=== PATIENT | male | born 1995 ===

== ENCOUNTER 2020-12-03 02:55 | Emergency (ER) | payer BC, OTHER ==
[2020-12-03 03:44] LABS: Protime INR 1.16
[2020-12-03 03:46] LABS: Absolute Lymphocytes (CBC) 1.7 K/uL (0.7-4.9); Basophils % 0.8 % (0-1.3); Lymphocytes % 31.8 % (15.3-44.8); MPV 7.2 fL (7.6-11.3); RBC Red Blood Cell Count 4.54 M/uL (4.33-5.43)
[2020-12-03 04:05] LABS: ALT/SGPT 51 U/L (12-78); AST/SGOT 101 U/L (15-37); Albumin 3.8 g/dL (3.4-5.0); Alkaline Phosphatase 57 U/L (45-117); BUN Blood Urea Nitrogen 9 mg/dL (7-18); Bicarbonate 27 mmol/L (21-32); Bilirubin Direct 0.2 mg/dL (0-0.2); Bilirubin Total 0.6 mg/dL (0.2-1.0); Glucose Level 82 mg/dL (74-106); Magnesium 2.3 mg/dL (1.8-2.4); NT PRO-BNP 22 pg/mL (<125); Sodium Level 138 mmol/L (136-145); Troponin (Emerg Dept Use Only) < 0.02 ng/mL (0.0-0.045)
[2020-12-03 05:08] LABS: Urine Blood NEGATIVE (NEG); Urine Glucose NEGATIVE (NEG); Urine Protein 1+ (NEG); Urine Specific Gravity 1.025 (1.005-1.030)
[2020-12-03 05:08] LABS: Urine Bacteria <20 /HPF (NONE SEEN); Urine Mucus SLIGHT /HPF (NONE SEEN); Urine RBC <5 /HPF (NONE SEEN)
[2020-12-03] MEDS ORDERED: KETOROLAC 30 MG/ML INJ ONE (05:20)
[2020-12-03] MEDS ORDERED: METHYLPREDNISOLONE 125 MG INJ ONE (05:20)
[2020-12-03] MEDS ORDERED: predniSONE 10 MG TAB ONE (05:20)
[2020-12-03 05:21] LABS: Uric Acid 5.3 mg/dL (3.5-7.2)
--- NOTE | 2020-12-03 07:58 | RAD REPORT ---
EXAM DESCRIPTION: RAD - Chest Single View - 12/03/2020 3:26 am CLINICAL HISTORY: SWELLING, cough COMPARISON: None TECHNIQUE: AP portable chest image was obtained 12/03/2020 3:26 am . FINDINGS: Lungs are clear. Heart and vasculature are normal. No measurable pleural effusion and no p neumothorax. No acute bony abnormality seen. No acute aortic findings suspected. IMPRESSION: No acute cardiopulmonary process.
--- NOTE | 2020-12-03 08:00 | RAD REPORT ---
EXAM DESCRIPTION: RAD - Foot Right 3 View - 12/03/2020 5:32 am CLINICAL HISTORY: Pain;Swelling COMPARISON: No comparisons FINDINGS: No fracture, dislocation or periosteal reaction. No acute or destructive bone or joint pro cess. No air or foreign body in the soft tissues. Soft tissue swelling is present. IMPRESSION: Soft tissue swelling with no acute bone or joint finding.
--- NOTE | 2020-12-03 08:01 | RAD REPORT ---
EXAM DESCRIPTION: RAD - Foot Left 3 View - 12/03/2020 5:31 am CLINICAL HISTORY: Pain;Swelling COMPARISON: No comparisons FINDINGS: No fracture, dislocation or periosteal reaction. No acute or destructive bony process. No air or foreign body in the soft tissues. Soft tissue swelling is present. IMPRESSION: Left foot soft tissue swelling without acute bone or joint finding.
--- NOTE | 2020-12-03 08:02 | RAD REPORT ---
EXAM DESCRIPTION: US - Extrem Venous W Compress Gaurav - 12/03/2020 7:44 am CLINICAL HISTORY: Pain;Swelling, both lower extremities COMPARISON: None. TECHNIQUE: Real-time sonographic evaluation of the bilateral lower extremity common femoral, superfi cial femoral, popliteal and posterior tibial veins was performed. FINDINGS: Normal compressibility, flow augmentation, phasic flow and spontaneous flow are identified in the left and right lower extremity common femoral, superficial femoral, popliteal and posterior t ibial veins. No intraluminal filling defects seen. IMPRESSION: No DVT in either lower extremity.
--- NOTE | 2020-12-03 08:20 | EDPHYS ---
Physician Documentation [facility] Name: Jim Gil Age: 25 yrs Sex: Male : 1995 Arrival Date: 12/03/2020 Time: 03:02 Bed 6 Private MD: ED Physician Demario Delacruz HPI: 12/03 05:02 This 25 yrs old Black Male presents to ER via Law Enforcement with complaints of Leg mabel Swelling. 05:02 The patient presents with decreased range of motion, pain, swelling. The complaints mabel affect the right foot and left foot. Context: The problem was sustained at an unknown location. Onset: The symptoms/episode began/occurred 7 day(s) ago. Modifying factors: The symptoms are alleviated by elevation of extremity, the symptoms are aggravated by weight bearing, movement, wearing shoes. Associated signs and symptoms: Pertinent positives: swelling, weakness. Severity of symptoms: At their worst the symptoms were moderate, in the emergency department the symptoms are unchanged. The patient has not experienced similar symptoms in the past. Historical: - Allergies: 03:10 No Known Allergies; rr5 - Home Meds: 03:10 None [Active]; rr5 - PMHx: 03:10 None; rr5 - PSHx: 03:10 None; rr5 - Immunization history:: Adult Immunizations up to date. - Social history:: Smoking status: Patient reports the use of cigarette tobacco products, 1 stick/day, Patient/guardian denies using alcohol, street drugs. - Family history:: not pertinent. ROS: 05:02 Constitutional: Negative for fever, chills, and weight loss, Eyes: Negative for injury, mabel pain, redness, and discharge, ENT: Negative for injury, pain, and discharge, Neck: Negative for injury, pain, and swelling, Cardiovascular: Negative for chest pain, palpitations, and edema, Respiratory: Negative for shortness of breath, cough, wheezing, and pleuritic chest pain, Abdomen/GI: Negative for abdominal pain, nausea, vomiting, diarrhea, and constipation, Back: Negative for injury and pain, : Negative for injury, bleeding, discharge, and swelling, Skin: Negative for injury, rash, and discoloration, Neuro: Negative for headache, weakness, numbness, tingling, and seizure, Psych: Negative for depression, anxiety, suicide ideation, homicidal ideation, and hallucinations, Allergy/Immunology: Negative for hives, rash, and allergies, Endocrine: Negative for neck swelling, polydipsia, polyuria, polyphagia, and marked weight changes, Hematologic/Lymphatic: Negative for swollen nodes, abnormal bleeding, and unusual bruising. 05:02 MS/extremity: Positive for decreased range of motion, pain, swelling, tenderness, of the right foot and left foot. Exam: 05:02 Constitutional: This is a well developed, well nourished patient who is awake, alert, mabel and in no acute distress. Head/Face: Normocephalic, atraumatic. Eyes: Pupils equal round and reactive to light, extra-ocular motions intact. Lids and lashes normal. Conjunctiva and sclera are non-icteric and not injected. Cornea within normal limits. Periorbital areas with no swelling, redness, or edema. ENT: Nares patent. No nasal discharge, no septal abnormalities noted. Tympanic membranes are normal and external auditory canals are clear. Oropharynx with no redness, swelling, or masses, exudates, or evidence of obstruction, uvula midline. Mucous membranes moist. Neck: Trachea midline, no thyromegaly or masses palpated, and no cervical lymphadenopathy. Supple, full range of motion without nuchal rigidity, or vertebral point tenderness. No Meningismus. Chest/axilla: Normal chest wall appearance and motion. Nontender with no deformity. No lesions are appreciated. Cardiovascular: Regular rate and rhythm with a normal S1 and S2. No gallops, murmurs, or rubs. Normal PMI, no JVD. No pulse deficits. Respiratory: Lungs have equal breath sounds bilaterally, clear to auscultation and percussion. No rales, rhonchi or wheezes noted. No increased work of breathing, no retractions or nasal flaring. Abdomen/GI: Soft, non-tender, with normal bowel sounds. No distension or tympany. No guarding or rebound. No evidence of tenderness throughout. Back: No spinal tenderness. No costovertebral tenderness. Full range of motion. Male : Normal genitalia with no discharge or lesions. Skin: Warm, dry with normal turgor. Normal color with no rashes, no lesions, and no evidence of cellulitis. Neuro: Awake and alert, GCS 15, oriented to person, place, time, and situation. Cranial nerves II-XII grossly intact. Motor strength 5/5 in all extremities. Sensory grossly intact. Cerebellar exam normal. Normal gait. Psych: Awake, alert, with orientation to person, place and time. Behavior, mood, and affect are within normal limits. 05:02 Musculoskeletal/extremity: Extremities: grossly normal except: noted in the right foot and left foot: decreased ROM, pain, ROM: limited active range of motion, limited passive range of motion, limited active range of motion due to pain, limited passive range of motion due to pain, Pulses: noted to be 4+ in the right popliteal artery, right posterior tibial artery, left posterior tibial artery, bilateral radial, brachial, femoral, popliteal, posterior tibial and and dorsalis pedis arteries., Sensation intact. Compartment Syndrome exam of affected extremity: is normal. DVT Exam: negative Homans' sign noted on exam, no appreciated bluish discoloration, pain, swelling, tenderness, erythema, of the right foot and left foot, increased warmth. 05:12 ECG was reviewed by the Attending Physician. [facility] 05:24 Musculoskeletal/extremity: no homans, no cords, only feet swolloen. [facility] Vital Signs: 03:10 BP 128 / 100; Pulse 91; Resp 17; Temp 98; Pulse Ox 98% ; Weight 83.91 kg; Height 5 ft. rr5 8 in. (172.72 cm); Pain 9/10; 03:45 BP 127 / 96; Pulse 81; Resp 17; Pulse Ox 98% ; rr5 04:44 BP 126 / 85; Pulse 75; Resp 16; Pulse Ox 98% ; rr5 05:37 BP 115 / 79; Pulse 79; Resp 15; Pulse Ox 98% ; rr5 07:10 BP 127 / 85; Pulse 85; Resp 16 S; Pulse Ox 98% on R/A; jd3 08:06 BP 145 / 94; Pulse 75; Resp 16 S; Pulse Ox 98% on R/A; jd3 03:10 Body Mass Index 28.13 (83.91 kg, 172.72 cm) rr5 MDM: 04:22 Patient medically screened. [facility] 05:08 Differential diagnosis: fracture, sprain, arthritis, gout, cellulitis. Data reviewed: [facility] vital signs, nurses notes, lab test result(s), EKG, radiologic studies, CT scan, plain films. Data interpreted: bus monitor: rate is 81 beats/min, rhythm is regular, Pulse oximetry: on room air is 98 %. Test interpretation: by ED physician or midlevel provider: ECG, plain radiologic studies. 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 12/03 03:14 Order name: Basic Metabolic Panel 12/03 03:14 Order name: CBC with Diff 12/03 03:14 Order name: LFT's 12/03 03:14 Order name: Magnesium 12/03 03:14 Order name: NT PRO-BNP 12/03 03:14 Order name: PT-INR 12/03 03:14 Order name: Troponin (emerg Dept Use Only); Complete Time: 05:33 ea 12/03 03:14 Order name: Basic Metabolic Panel; Complete Time: 05:33 EDMS 12/03 03:14 Order name: CBC with Automated Diff; Complete Time: 04:54 EDMS 12/03 03:14 Order name: Liver (Hepatic) Function; Complete Time: 05:33 EDMS 12/03 03:14 Order name: Magnesium; Complete Time: 05:33 EDMS 12/03 03:14 Order name: NT PRO-BNP; Complete Time: 05:33 EDMS 12/03 03:14 Order name: Protime (+INR); Complete Time: 04:54 EDMS 12/03 03:45 Order name: Urine Microscopic Only; Complete Time: 05:13 rr5 12/03 03:14 Order name: XRAY Chest (1 view); Complete Time: 08:17 ea 12/03 03:14 Order name: EKG; Complete Time: 03:15 ea 12/03 03:14 Order name: Cardiac monitoring; Complete Time: 03:28 12/03 03:14 Order name: EKG - Nurse/Tech; Complete Time: 03:28 ea 12/03 03:14 Order name: IV Saline Lock; Complete Time: 03:28 ea 12/03 03:46 Order name: Urine Dipstick--Ancillary (enter results) tt3 12/03 03:46 Order name: Urine Dipstick-Ancillary; Complete Time: 05:13 EDMS 12/03 05:00 Order name: Foot Left 3 View XRAY; Complete Time: 08:17 [facility] 12/03 05:00 Order name: Foot Right 3 View XRAY; Complete Time: 08:17 [facility] 12/03 05:02 Order name: CT Lumbar Spine Wo Con [facility] 12/03 05:13 Order name: Uric Acid; Complete Time: 05:33 EDMS 12/03 05:45 Order name: US Extremity Venous W Compression Gaurav; Complete Time: 08:17 [facility] 12/03 03:14 Order name: Labs collected and sent; Complete Time: :28 ea 12/03 03:14 Order name: O2 Per Protocol; Complete Time: ea 12/03 03:14 Order name: O2 Sat Monitoring; Complete Time: EC:12 Rate is 89 beats/min. Rhythm is regular. QRS [place] is Normal. MA interval is normal. QRS mabel interval is normal. QT interval is normal. No Q waves. T waves are Normal. No ST changes noted. Clinical impression: NSR w/ Non-specific ST/T Changes and No evidence of ischemia. Interpreted by me. Reviewed by me. Administered Medications: 05:05 Drug: TORadol 30 mg Route: IVP; Site: left antecubital; rr5 06:09 Follow up: Response: No adverse reaction rr5 05:08 Drug: SOLU-Medrol 125 mg Route: IVP; Site: left antecubital; rr5 06:08 Follow up: Response: No adverse reaction rr5 05:08 Drug: predniSONE 20 mg Route: PO; rr5 06:08 Follow up: Response: No adverse reaction rr5 Disposition: 12/03/20 08:20 Discharged to Home. Impression: Edema, unspecified, Pain in left foot, Pain in right foot. - Condition is Stable. - Discharge Instructions: Edema, Musculoskeletal Pain, Cryotherapy, Klxc-ul-Edym, Edema, Uiip-ri-Arjy, Cryotherapy, Foot Pain, Peripheral Edema. - Prescriptions for Ibuprofen 600 mg Oral Tablet - take 1 tablet by ORAL route every 8 hours As needed take with food; 21 tablet. Prednisone 20 mg Oral Tablet - take 1 tablet by ORAL route once daily for 5 days; 5 tablet. - Medication Reconciliation Form, Thank You Letter, Antibiotic Education, Prescription Opioid Use form. - Follow up: Private Physician; When: 2 - 3 days; Reason: Recheck today's complaints, Continuance of care, Re-evaluation by your physician. - Problem is new. - Symptoms have improved. Signatures: Dispatcher [employer] [facility] Betito Ruggiero MD MD cha Rittger, Kevin, MD MD kdr Antunez, Elena RN Manish Rutledge ea, RN RN jd3 Tab Donohue RN RN rr5 Corrections: (The following items were deleted from the chart) 05:13 05:08 URIC ACID+C.LAB.BRZ ordered. [facility] 08:38 08:20 12/03/2020 08:20 Discharged to Home. Impression: Edema, unspecified; Pain in left jd3 foot; Pain in right foot. Condition is Stable. Discharge Instructions: Edema, Musculoskeletal Pain, Cryotherapy, Bzrs-kn-Nzmd, Edema, Xory-uq-Jrll, Cryotherapy, Foot Pain, Peripheral Edema. Prescriptions for Ibuprofen 600 mg Oral Tablet - take 1 tablet by ORAL route every 8 hours As needed take with food; 21 tablet, Prednisone 20 mg Oral Tablet - take 1 tablet by ORAL route once daily for 5 days; 5 tablet. and Forms are Medication Reconciliation Form, Thank You Letter, Antibiotic Education, Prescription Opioid Use. Follow up: Private Physician; When: 2 - 3 days; Reason: Recheck today's complaints, Continuance of care, Re-evaluation by your physician. Problem is new. Symptoms have improved. kdr
--- NOTE | 2020-12-03 08:20 | ER ---
Nurse's Notes [facility] Name: Jim Gil Age: 25 yrs Sex: Male : 1995 Arrival Date: 12/03/2020 Time: 03:02 Bed 6 Private MD: Diagnosis: Edema, unspecified;Pain in left foot;Pain in right foot Presentation: 12/03 03:10 Chief complaint: Patient states: my feet is swollen, painful, cannot move my legs and rr5 cannot control my urine started a week ago. 03:10 Coronavirus screen: Client denies travel out of the [place] in the last 14 days. At this rr5 time, the client does not indicate any symptoms associated with coronavirus-19. Ebola Screen: Patient negative for fever greater than or equal to 101.5 degrees Fahrenheit, and additional compatible Ebola Virus Disease symptoms Patient denies exposure to infectious person. Patient denies travel to an Ebola-affected area in the 21 days before illness onset. Initial Sepsis Screen: Does the patient meet any 2 criteria? No. Patient's initial sepsis screen is negative. Does the patient have a suspected source of infection? No. Patient's initial sepsis screen is negative. Risk Assessment: Do you want to hurt yourself or someone else? Patient reports no desire to harm self or others. Onset of symptoms was November 2020. 03:10 Method Of Arrival: Law Enforcement: housing officer rr5 03:10 Acuity: SHARAD 3 rr5 Historical: - Allergies: 03:10 No Known Allergies; rr5 - Home Meds: 03:10 None [Active]; rr5 - PMHx: 03:10 None; rr5 - PSHx: 03:10 None; rr5 - Immunization history:: Adult Immunizations up to date. - Social history:: Smoking status: Patient reports the use of cigarette tobacco products, 1 stick/day, Patient/guardian denies using alcohol, street drugs. - Family history:: not pertinent. Screenin:19 Abuse screen: Denies threats or abuse. Denies injuries from another. Nutritional rr5 screening: No deficits noted. Tuberculosis screening: No symptoms or risk factors identified. Fall Risk IV access (20 points). Gait- Impaired (20 pts.). Total Gallardo Fall Scale indicates Low Risk Score (25-44 pts). Fall prevention measures have been instituted. Side Rails Up X 2 Frequent Obs/Assesments occuring As available Patient and Family Educated on Fall Prevention Program and strategies. Assessment: 03:19 General: Appears in no apparent distress. uncomfortable, Behavior is calm, cooperative, rr5 appropriate for age. Pain: Complains of pain in right foot and left foot Pain currently is 9 out of 10 on a pain scale. Quality of pain is described as aching, Pain began gradually, Is intermittent. Neuro: Level of Consciousness is awake, alert, obeys commands, Oriented to person, place, time. Cardiovascular: Capillary refill < 3 seconds Patient's skin is warm and dry. Edema is 2+ to left foot and right foot. Respiratory: Airway is patent Respiratory effort is even, unlabored, Respiratory pattern is regular, symmetrical. GI: No signs and/or symptoms were reported involving the gastrointestinal system. : Reports incontinence. EENT: No signs and/or symptoms were reported regarding the EENT system. Derm: Skin is intact, is healthy with good turgor, Skin temperature is warm. Musculoskeletal: Swelling present in right foot and left foot Reports weakness in right leg and left leg numbness in right leg and left leg pain in right leg and left leg Pain is 9 out of 10 on a pain scale. 04:20 Reassessment: Patient appears in no apparent distress at this time. Patient and/or rr5 family updated on plan of care and expected duration. Pain level reassessed. Patient is alert, oriented x 3, equal unlabored respirations, skin warm/dry/pink. awaiting for results. 05:30 Reassessment: Patient appears in no apparent distress at this time. Patient is alert, rr5 oriented x 3, equal unlabored respirations, skin warm/dry/pink. went to CT scan escorted by housing officer. 06:07 Reassessment: correctional care officer called updated for the plan of care rr5 [phone]. 06:10 Reassessment: Patient appears in no apparent distress at this time. Patient is alert, rr5 oriented x 3, equal unlabored respirations, skin warm/dry/pink. awaiting for results, no complaints made. 07:11 General: Appears in no apparent distress. comfortable, Behavior is calm, cooperative, jd3 appropriate for age, Denies pain at this time. Neuro: Level of Consciousness is awake, alert, obeys commands, Oriented to person, place, time, situation. Cardiovascular: Capillary refill < 3 seconds Patient's skin is warm and dry. Respiratory: Airway is patent Respiratory effort is even, unlabored, Respiratory pattern is regular, symmetrical. Derm: Skin is intact, Skin is dry, Skin is normal, Skin temperature is warm. Musculoskeletal: Circulation, motion, and sensation intact. Swelling present in right foot and left foot. 08:01 Reassessment: Patient appears in no apparent distress at this time. No changes from jd3 previously documented assessment. Patient and/or family updated on plan of care and expected duration. Pain level reassessed. Patient is alert, oriented x 3, equal unlabored respirations, skin warm/dry/pink. awaiting results Patient denies pain at this time. 08:36 Reassessment: Patient appears in no apparent distress at this time. Patient and/or jd3 family updated on plan of care and expected duration. Pain level reassessed. Patient is alert, oriented x 3, equal unlabored respirations, skin warm/dry/pink. reported understanding of discharge instructions, assisted pt to wheelchair. leaving ER with care home guards. Vital Signs: 03:10 BP 128 / 100; Pulse 91; Resp 17; Temp 98; Pulse Ox 98% ; Weight 83.91 kg; Height 5 ft. rr5 8 in. (172.72 cm); Pain 9/10; 03:45 BP 127 / 96; Pulse 81; Resp 17; Pulse Ox 98% ; rr5 04:44 BP 126 / 85; Pulse 75; Resp 16; Pulse Ox 98% ; rr5 05:37 BP 115 / 79; Pulse 79; Resp 15; Pulse Ox 98% ; rr5 07:10 BP 127 / 85; Pulse 85; Resp 16 S; Pulse Ox 98% on R/A; jd3 08:06 BP 145 / 94; Pulse 75; Resp 16 S; Pulse Ox 98% on R/A; jd3 03:10 Body Mass Index 28.13 (83.91 kg, 172.72 cm) rr5 ED Course: 03:02 Patient arrived in ED. bp1 03:04 Tba Donohue, RN is Primary Nurse. rr5 03:15 Arm band placed on right wrist. rr5 03:18 Triage completed. rr5 03:19 Patient has correct armband on for positive identification. Bed in low position. Call rr5 light in reach. bus monitor on. Pulse ox on. NIBP on. 03:25 Inserted saline lock: 20 gauge in left antecubital area, using aseptic technique. Blood rr5 collected. 03:25 EKG done, by ED staff. rr5 03:26 XRAY Chest (1 view) In Process Unspecified. EDMS 03:45 Urine collected: clean catch specimen, clear. rr5 04:19 Betito Ruggiero MD is Attending Physician. mabel 05:31 Foot Left 3 View XRAY In Process Unspecified. EDMS 05:31 Foot Right 3 View XRAY In Process Unspecified. EDMS 05:47 CT Lumbar Spine Wo Con In Process Unspecified. EDMS 07:44 US Extremity Venous W Compression Gaurav In Process Unspecified. EDMS 07:50 Primary Nurse role handed off by Tab Donohue RN jd3 07:50 Manish Christianson RN is Primary Nurse. jd3 08:16 Attending Physician role handed off by Betito Ruggiero MD kdr 08:16 Demario Delacruz MD is Attending Physician. kdr 08:37 No provider procedures requiring assistance completed. IV discontinued, intact, jd3 bleeding controlled, No redness/swelling at site. Pressure dressing applied. Administered Medications: 05:05 Drug: TORadol 30 mg Route: IVP; Site: left antecubital; rr5 06:09 Follow up: Response: No adverse reaction rr5 05:08 Drug: SOLU-Medrol 125 mg Route: IVP; Site: left antecubital; rr5 06:08 Follow up: Response: No adverse reaction rr5 05:08 Drug: predniSONE 20 mg Route: PO; rr5 06:08 Follow up: Response: No adverse reaction rr5 Outcome: 08:20 Discharge ordered by . kdr 08:38 Discharged to care home with dock guard jd3 08:38 Condition: stable 08:38 Discharge instructions given to patient, Instructed on discharge instructions, follow up and referral plans. medication usage, Demonstrated understanding of instructions, follow-up care, medications, Prescriptions given X 2. 08:38 Patient left the ED. jd3 Signatures: Dispatcher [employer] EDBetito Lawrence MD MD cha Rittger, Kevin, MD MD kdr Davies, Jonathon, RN RN jd3 Tab Donohue RN RN rr5 Mitzy Cuenca [facility] Corrections: (The following items were deleted from the chart) 03:28 03:19 Musculoskeletal: Circulation, motion, and sensation intact. Capillary refill < 3 rr5 seconds, rr5 07:51 07:11 General: Appears in no apparent distress. comfortable, Behavior is calm, jd3 cooperative, appropriate for age, jd3
[2020-12-03 08:57] VITALS: TEMP 98; O2SAT 98
[2020-12-03 09:03] VITALS: BP 145/94
--- NOTE | 2020-12-03 12:18 | RAD REPORT ---
EXAM DESCRIPTION: CT - Spine Lumbar Wo Con - 12/03/2020 7:06 am CLINICAL HISTORY: The patient is 25 years old and is Male; RADICULOPATHY feet swollen, cannot move l egs TECHNIQUE: Axial computed tomography images of the lumbar spine without intravenous contrast. Sagi ttal and coronal reformatted images were created and reviewed. This CT exam was performed using one or more of the following dose reduction techniques: automated exposure control, adjustment of the mA and/or kV according to patient size, and/or use of iterative reconstruction technique. COMPARISON: No relevant prior studies available. FINDINGS: Vertebrae: No acute fracture visualized. Discs/spinal canal/neural foramina: L5-S1 midline shallow disc protrusion without significant ce ntral canal stenosis. Hypoplastic disc at S1-2. Soft tissues: Unremarkable. IMPRESSION: L5-S1 midline shallow disc protrusion without significant central canal stenosis. 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 The interpreting r adiologist is fully responsible for the content of the report.
--- NOTE | 2020-12-03 14:09 | EKG ---
Test Date: 2020-12-03 Test Time: 03:23:26 Research Staff Member: HAYDER MEASUREMENT RESULTS: Intervals: Rate: 89 FL: 126 QRSD: 84 QT: 366 QTc: 445 [place]: P: 73 FL: 126 QRS: 58 T: 50 INTERPRETIVE STATEMENTS: Normal sinus rhythm Nonspecific ST abnormality Abnormal ECG No previous ECG available for comparison Electronically Signed On 12-03-20 14:08:49 [employer]ER by Paulo Durand
== END 2020-12-03 08:38 | disposition home or self-care (01) ==
LOC: ER 02:55
DX: M79.672 Pain in left foot (principal); M79.671 Pain in right foot; F17.210 Nicotine dependence, cigarettes, uncomplicated
CPT/HCPCS: 93005; 85025; 80048; 36415; 83735; 85610; 80076; 84550; 84484; 83880; 72131; 71045; 73630 ×2; 93970; 96375; 96374; 99285; J7512; 81003; 81015; J2930